=== PATIENT | female | born 1995 | race Caucasian/White ===

== ENCOUNTER 2017-03-10 17:40 | Emergency (ER) | payer SELFPAY ==
[~2017-03-10] VITALS: Ht 162.5 cm; Wt 99.8 kg
[~2017-03-10 17:40] MED LIST: AMOXICILLIN500 MG PO; BIRTH CONTROL1 EAC1 PO; FIORICET 325 MG1 TAB PO; METFORMIN500 MG PO; NAPROSYN500 MG PO; SEPTRA DS 800 M1 TAB PO; TESSALON PERLE100 M1 PO; TESSALON PERLE200 MG PO; ZANTAC 150150 MG PO; ZITHROMAX Z PA250 MG PO; ZOFRAN ODT4 MG SL
[2017-03-10] MEDS ORDERED: CLARITIN10 MG PO (18:02)
[2017-03-10] MEDS ORDERED: FLONASE ALLERG9.9 ML NAS (18:02)
[2017-03-10] MEDS ORDERED: ROBITUSSIN AC 110 ML PO (18:02)
[2017-03-10] MEDS ORDERED: PREDNISONE10 MG PO (18:02)
== END 2017-03-10 19:31 | disposition home or self-care (01) ==
LOC: ED 17:40
DX: B34.9 Viral infection, unspecified (principal); F17.200 Nicotine dependence, unspecified, uncomplicated